=== PATIENT | male | born 1970 ===

== ENCOUNTER 2020-10-14 07:50 | Outpatient (REF) | payer MEDICAID, SELFPAY ==
--- NOTE | ~2020-10-14 | XR_ITS ---
EXAMINATION: XR KNEE, BILATERAL XR KNEE, RIGHT CLINICAL INFORMATION: Pain COMPARISON: None TECHNIQUE: AP bilateral knees 1 view. Right knee 2 views. FINDINGS: RIGHT KNEE: Moderate patellofemoral arthritis, marginal osteophytes, joint space loss. Medial and lateral compartment joint spaces are maintained. Small effusion. No fracture or dislocation. Ossifications project in the region of the intercondylar notch, could reflect osteophytes or loose bodies. LEFT KNEE: Marginal spurring in the lateral greater than medial compartment. XR/XR knee standing BI IMPRESSION: RIGHT KNEE: 1. Moderate patellofemoral arthritis. 2. No acute findings. Small effusion. Osteophytes versus loose bodies in the intercondylar region. LEFT KNEE: 1. Degenerative spurring as above.
--- NOTE | ~2020-10-14 | XR_ITS ---
EXAMINATION: XR KNEE, BILATERAL XR KNEE, RIGHT CLINICAL INFORMATION: Pain COMPARISON: None TECHNIQUE: AP bilateral knees 1 view. Right knee 2 views. FINDINGS: RIGHT KNEE: Moderate patellofemoral arthritis, marginal osteophytes, joint space loss. Medial and lateral compartment joint spaces are maintained. Small effusion. No fracture or dislocation. Ossifications project in the region of the intercondylar notch, could reflect osteophytes or loose bodies. LEFT KNEE: Marginal spurring in the lateral greater than medial compartment. XR/XR knee RT 2V IMPRESSION: RIGHT KNEE: 1. Moderate patellofemoral arthritis. 2. No acute findings. Small effusion. Osteophytes versus loose bodies in the intercondylar region. LEFT KNEE: 1. Degenerative spurring as above.
== END 2020-10-14 07:51 | disposition home or self-care (01) ==
LOC: HO.HOSX 07:50
PROVIDERS: Visit Provider Orthopaedic Surgery
DX: M17.11 Unilateral primary osteoarthritis, right knee (principal); M25.561 Pain in right knee; E11.9 Type 2 diabetes mellitus without complications; E66.01 Morbid (severe) obesity due to excess calories; I10 Essential (primary) hypertension; Z87.891 Personal history of nicotine dependence; Z68.43 Body mass index [BMI] 50.0-59.9, adult; Z88.1 Allergy status to other antibiotic agents
CPT/HCPCS: 20610; 73560; 73565; 99202; J1100